=== PATIENT | male | born 1980 | race Caucasian/White ===

== ENCOUNTER 2018-10-20 08:30 | Emergency (ER) | payer SELFPAY ==
--- NOTE | 2018-10-20 09:29 | RAD ---
FXR Hip Lt 2-3 View: 10/20/2018 9:17 AM CLINICAL INDICATION: Pain COMPARISON: None. FINDINGS: Fracture:No fracture. Arthropathy:None of significance. Incidental findings:None of significance. IMPRESSION: 1. No acute osseous abnormality.
== END 2018-10-20 10:00 | disposition home or self-care (01) ==
LOC: ERS 08:30
DX: M25.552 Pain in left hip (principal); F41.9 Anxiety disorder, unspecified; F31.9 Bipolar disorder, unspecified; F17.210 Nicotine dependence, cigarettes, uncomplicated